=== PATIENT | male | born 1965 | race Caucasian/White ===

== ENCOUNTER 2016-12-31 16:00 | Inpatient (IN) | payer OTHER ==
--- NOTE | ~2016-12-31 | PN ---
Unit #: [id number] #: [id number] Patient: FABIÁN AUGUST [id number] [facility] [address] [place] [address] [id number] I MR#: [id number] NAME: FABIÁN AUGUST. ROOM: P210 Age: 51 Sex: M Admission Date: 12/31/2016 : 1965 Attending Physician: Aravind White M.D. Admitting Physician: Aravind White M.D. Primary Care Physician: Tony Solano PROGRESS NOTES DATE OF SERVICE: 01/02/2017 SUBJECTIVE Mr. August is a 51-year-old white male, who was seen today and chart was reviewed, and case was discussed with the staff. He has been anxious, withdrawn, and reports some persistent depressive symptom. Meanwhile, he has been compliant with the treatment recommendations and has been taking the medications and tolerating them fairly well with no reported side effects. MENTAL STATUS EXAMINATION Middle-aged white male, who was casually dressed with fair personal hygiene, appears to be in no acute distress or discomfort. He was awake and alert with intact orientation. His mood was anxious with a congruent affect. He denies any suicidal or homicidal ideations. His insight and judgment remain slightly impaired. TREATMENT PLAN 1. We will continue him on his current medications and treatment protocol. We will monitor his response to the medications and make further adjustments as needed. 2. We will continue to follow up. Dictated by... Tony Viera/teodora TD: 01/02/2017 13:23 JOB #: [id number] MARY PROGRESS NOTES Page 1 of 1 X Aravind White MD X PROGRESS NOTE
--- NOTE | ~2016-12-31 | PN ---
Unit #: [id number] #: [id number] Patient: FABIÁN AUGUST [id number] [facility] [address] [place] [address] [id number] I MR#: [id number] NAME: FABIÁN AUGUST. ROOM: P210 Age: 51 Sex: M Admission Date: 12/31/2016 : 1965 Attending Physician: Aravind White M.D. Admitting Physician: Aravind White M.D. Primary Care Physician: Tony Solano PROGRESS NOTES DATE OF SERVICE 01/05/2017 DISCUSSION Mr. August is a 51-year-old white male who was seen today. Chart was reviewed and case was discussed with the staff. He reports doing fairly well on his detox and that he is still struggling with his depression and anxiety, and we would like to go back on his previous medications of Lexapro and Seroquel. Meanwhile, he has been going to therapy groups and has been participating. MENTAL STATUS EXAMINATION Middle-aged white male who is casually dressed with fair personal hygiene, appears to be in no acute distress or discomfort. The patient was awake and alert on interaction with intact orientation. His mood is anxious and depressed with congruent affect. He denies any suicidal or homicidal ideations. His insight and judgment remain slightly impaired. TREATMENT PLAN 1. We will continue him on his current treatment protocol. We will monitor his response. We will start him back on Seroquel and Lexapro. 2. We will continue to follow up. Dictated by... Tony Viera/marlene TD: 01/05/2017 13:56 JOB #: [id number] [facility] PROGRESS NOTES Page 1 of 1 X Aravind White MD X PROGRESS NOTE
--- NOTE | ~2016-12-31 | PA ---
Unit #: [id number] #: [id number] Patient: FABIÁN AUGUST [id number] [facility] [place] [address] [id number] I MR#: [id number] NAME: FABIÁN AUGUST. ROOM: P210 Age: 51 Sex: M Admission Date: 12/31/2016 : 1965 Date of Assessment: Attending Physician: Aravind White M.D. Admitting Physician: Aravind White M.D. Primary Care Physician: Alan George M.D. PSYCHIATRIC ASSESSMENT IDENTIFYING DATA Mr. August is a 51-year-old single white male, who is a resident of [place], [place], and was self-referred to the hospital on voluntary basis. CHIEF COMPLAINT "I'm an alcoholic and had use heroin". HISTORY OF PRESENT ILLNESS Mr. August is a 41-year-old white male with history of substance abuse and dependence as he presented here stating that he called [facility] and they referred him to [facility] because of insurance and reports that he drank today four cans of Hebert's Hard lemonade and has been using alcohol and heroin on a daily basis and has usually been drinking a pint of vodka a day and using 3-10th of a gram of heroin and reports that he drinks whiskey not to get sick and has history of seizures coming off alcohol and does report increasing depression, anxiety, irritability, feelings of hopelessness and helplessness, but denies any suicidal ideations, intent, or plan. SUBSTANCE ABUSE HISTORY The patient has extensive history of substance abuse and dependence including alcohol, cannabis, cocaine, acid, opioids, inhalants, amphetamines, and benzodiazepines, and currently alcohol and opioids appear to be his drug of choice. PAST PSYCHIATRIC HISTORY The patient has had history of inpatient chemical dependency treatment at [facility] in the past. Review of the medical records indicate that currently he is not active in any treatment program, is not seeing a psychiatrist, is not taking any psychotropic medications. PAST MEDICAL HISTORY Polyps in colon, hepatitis B, cirrhosis of the liver, degenerative disk disease, pancreatitis and sciatica. ALLERGIES Codeine. PERSONAL AND SOCIAL HISTORY A 51-year-old white male, who reports that he is single, unemployed, and essentially homeless and has poor social support system. Unit #: [id number] #: [id number] Patient: FABIÁN AUGUST MENTAL STATUS EXAMINATION Middle-aged white male, who was casually dressed with fair personal hygiene, appears to be in no acute distress or discomfort. He was awake and alert on interaction with intact orientation to time, place, and person. His mood was anxious and depressed with a congruent affect. Her speech was slow and goal directed. He denies any suicidal or homicidal ideations and also denies any auditory or visual hallucinations. His insight and judgment remain significantly impaired. DIAGNOSTIC IMPRESSION Psychiatric: Opioid dependence, moderate and acute withdrawals. Methamphetamine dependence, moderate. Opioid-induced mood disorder. Medical: Polyps in colon, hepatitis B, cirrhosis of the liver, degenerative disk disease, pancreatitis, and sciatica. Stressors: Moderate psychosocial stressors. TREATMENT PLAN 1. The patient has presented with history of mood disorder and substance abuse and has been decompensating and will need inpatient hospitalization for safety and stabilization. We will start him back on his home medications. We will adjust the medications and monitor response. 2. Supportive therapy was provided to the patient. 3. Safe, structured, and nourishing environment will be provided. ESTIMATED LENGTH OF STAY 5 to 7 days. ABILITY TO HELP SELF Limited. WILLINGNESS TO HELP SELF The patient appears to be willing to help self. STRENGTHS 1. Communicative. 2. Cooperative. PROBLEMS 1. Chronic dysphoric symptoms. 2. Poor social support system. DISCHARGE CRITERIA This will be contingent upon the patient's ability to show resolution of his depression and anxiety and his ability to stay safe to himself, particularly after discharge from the hospital. Dictated by... Tony Viera/teodora TD: 01/01/2017 15:15 JOB #: [id number] Unit #: [id number] #: [id number] Patient: FABIÁN AUGUST PSYCHIATRIC ASSESSMENT Page 1 of 1 X Aravind White MD PSYCHIATRIC ASSESSMENT
--- NOTE | ~2016-12-31 | PN ---
Unit #: [id number] #: [id number] Patient: FABIÁN MACIEL [id number] [facility] [address] [place] [address] [id number] I MR#: [id number] NAME: FABIÁN MACIEL. ROOM: P210 Age: 51 Sex: M Admission Date: 12/31/2016 : 1965 Attending Physician: Aravind White M.D. Admitting Physician: Aravind White M.D. Primary Care Physician: Alan George M.D. [facility] PROGRESS NOTES DATE 01/01/2017 DISCUSSION Mr. Maciel is a 51-year-old white male who was seen today and chart reviewed and case was discussed with the staff. . Meanwhile, he has been cooperative with treatment protocol and medication and tolerating them fairly well with no reported side effects. MENTAL STATUS EXAMINATION Middle-aged white male who was casually dressed with a fair personal hygiene, appears to be in no acute distress or discomfort. He was awake and alert with intact orientation. His mood is anxious with a congruent affect. He denies any suicidal or homicidal ideation. His insight and judgment remains slightly impaired. TREATMENT PLAN We will continue him on his current medications and treatment protocol. We will monitor his response and make further adjustments as needed. Dictated by... Aravind White M.D. IAA/to TD: 01/02/2017 11:22 JOB #: [id number] [facility] PROGRESS NOTES Page 1 of 1 X Aravind White MD PROGRESS NOTE
--- NOTE | ~2016-12-31 | PN ---
Unit #: [id number] #: [id number] Patient: FABIÁN AUGUST [id number] [facility] [address] [place] [address] [id number] I MR#: [id number] NAME: FABIÁN AUGUST. ROOM: P210 Age: 51 Sex: M Admission Date: 12/31/2016 : 1965 Attending Physician: Aravind White M.D. Admitting Physician: Aravind White M.D. Primary Care Physician: Tony Solano PROGRESS NOTES DATE 01/03/2017 DISCUSSION Mr. August is a 51-year-old, white male who was seen today and chart was reviewed and case was discussed with the staff. He has been anxious, withdrawn and rather seclusive to himself. Meanwhile, he has been cooperative with the treatment recommendations. He has been taking the medication and tolerating them fairly well with no reported side effects. MENTAL STATUS EXAM Middle-aged white male who was casually dressed with fair personal hygiene, appears to be in no acute distress or discomfort. He was awake and alert with intact orientation. His mood was anxious with congruent affect. He denies any suicidal or homicidal ideation. His insight and judgement remains slightly impaired. TREATMENT PLAN 1. We will continue him on his current medications and treatment protocol. We will monitor his response to the medication and make further adjustments as needed. 2. We will continue to follow up. Dictated by... Tony Viera/edna TD: 01/04/2017 02:41 JOB #: [id number] Unit #: [id number] #: [id number] Patient: FABIÁN AUGUST PROGRESS NOTES Page 1 of 1 X Aravind hWite MD PROGRESS NOTE
--- NOTE | ~2016-12-31 | PN ---
Unit #: [id number] #: [id number] Patient: FABIÁN AUGUST [id number] [facility] [address] [place] [address] [id number] I MR#: [id number] NAME: FABIÁN AUGUST. ROOM: P210 Age: 51 Sex: M Admission Date: 12/31/2016 : 1965 Attending Physician: Aravind White M.D. Admitting Physician: Aravind White M.D. Primary Care Physician: Tony Solano PROGRESS NOTES DATE 01/04/2017 DISCUSSION Mr. August is a 51-year-old white male who was seen today and chart was reviewed and case was discussed with the staff. He remains anxious, withdrawn, depressed and seclusive to himself. However, he stated that he was interested in the Vivitrol injection program after completing the detox. He has been taking medications and tolerating them fairly well with no reported side effects. MENTAL STATUS EXAMINATION Young white male who was casually dressed with fair personal hygiene and appears to be in no acute distress or discomfort. He was awake and alert with intact orientation. His mood was anxious with congruent affect. He denies any suicidal or homicidal ideation. His insight and judgement remains slightly impaired. TREATMENT PLAN 1. Will continue on his current treatment protocol. Will monitor his response to the medications and make further adjustments as needed. 2. Will continue to follow up. Dictated by... Tony Viera/pilar TD: 01/04/2017 21:33 JOB #: [id number] Unit #: [id number] #: [id number] Patient: FABIÁN AUGUST MARY PROGRESS NOTES Page 1 of 1 X Aravind White MD X PROGRESS NOTE
--- NOTE | ~2016-12-31 | DS ---
Unit #: [id number] #: [id number] Patient: FABIÁN AUGUST [id number] [facility] [address] [place] [address] [id number] I MR#: [id number] NAME: FABIÁN AUGUST. ROOM: P210 Age: 51 Sex: M Admission Date: 12/31/2016 : 1965 Discharge Date: 01/06/2017 Attending Physician: Aravind White M.D. Primary Care Physician: Alan George M.D. DISCHARGE SUMMARY IDENTIFYING DATA Mr. August is a 51-year-old single white male, resident of [place], [place] was self-referred to the hospital on voluntary basis and with a chief complaint of "I'm an alcoholic and I have used heroin." HISTORY OF PRESENT ILLNESS Please see initial psychiatric evaluation for details. PAST PSYCHIATRIC HISTORY Please see initial psychiatric evaluation for details. PAST MEDICAL HISTORY Please see initial psychiatric evaluation for details. HOSPITAL COURSE The patient was admitted to the Adult Chemical Dependency Unit at [facility] alejandra [facility] and was oriented to the hospital environment, p.r.n. medications were initiated and he was started on the detox protocol and was seen to be anxious, withdrawn, and rather seclusive to himself; however, he was taking the medications regularly and once he was able to come out of the detox, he stated that he has history of depression and has been on Lexapro and Seroquel in the past and that he would like to get back on that regimen and Seroquel and Lexapro were initiated and he was closely monitored. He was taking the medications regularly and was tolerating them fairly well and was able to show a decent therapeutic response with improvement in depression and anxiety, and as such it was decided that he will be discharged and will continue treatment on outpatient basis. DISCHARGE DIAGNOSES Lodi I Opiate dependence, moderate, in acute withdrawal. Methamphetamine dependence, moderate, in acute withdrawal. Alcohol dependence, moderate. Opiate-induced mood disorder. Lodi II Lodi III Polyps in colon. Hepatitis B. Cirrhosis of the liver. Degenerative disc disease. Pancreatitis. Sciatica. Lodi IV Moderate psychosocial stressors. Lodi V Unit #: [id number] #: [id number] Patient: FABIÁN AUGUST DISCHARGE MEDICATIONS 1. Lexapro 10 mg in the morning for depression 2. Seroquel 100 mg at bedtime for depression CONDITION AT DISCHARGE Stable. PROGNOSIS Fair. Dictated by... Tony Viera/araseli TD: 01/07/2017 11:03 JOB #: [id number] DISCHARGE SUMMARY Page 1 of 1 X Aravind White MD X DISCHARGE SUMMARY
--- NOTE | ~2016-12-31 | CO ---
Unit #: [id number] #: [id number] Patient: LUKE AUGUST [id number] [place] [address] [id number] I MR#: [id number] NAME: LUKE AUGUST. ROOM: P210 Age: 51 Sex: M Admission Date: 12/31/2016 : 1965 Attending Physician: Aravind White M.D. Primary Care Physician: Alan George M.D. Consultation Date: 01/01/2017 CONSULTATION REPORT HISTORY OF PRESENT ILLNESS There is some concern that Luke has a history of DVT and may need anticoagulation. Luke reports he had a DVT at least a year ago and was given Coumadin while he was in the hospital. He also reports that he had been taking atenolol. He is not sure if he had AFib or another heart arrhythmia that possibly could have caused the clot, but he has not been taking any of these medications for the past year at least. 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 He denies any heart palpitations, chest pain, shortness of air, dizziness, or lightheadedness. No other complaints. PHYSICAL EXAMINATION CARDIAC: Regular rate and rhythm. No murmur, gallop, or rub. RESPIRATORY: Clear to auscultation bilaterally. ASSESSMENT AND PLAN History of deep venous thrombosis. Luke is an extremely poor historian. He is unsure what the cause of the deep venous thrombosis was or where the deep venous thrombosis was located. He reports he had been taking Coumadin and atenolol, but it has been at least a year since he was on those medications. At this time, there is no indication for restarting any of those meds. Dictated by... Gail Valenzuela A.P.R.N. for Tony Martinez/teodora TD: 01/02/2017 01:31 JOB #: [id number] CONSULTATION REPORT Page 1 of 1 X GAIL BUI APRN CONSULTATION REPORT
--- NOTE | ~2016-12-31 | HP ---
Unit #: [id number] #: [id number] Patient: LUKE AUGUST [id number] [place] [address] [id number] I MR#: [id number] NAME: LUKE AUGUST. ROOM: P210 Age: 51 Sex: M Admission Date: 12/31/2016 : 1965 Attending Physician: Aravind White M.D. Admitting Physician: Aravind White M.D. Primary Care Physician: Alan George M.D. HISTORY AND PHYSICAL HISTORY OF PRESENT ILLNESS Luke is a 51-year-old male admitted on 12/31/[address] [place] [address] for detox from alcohol and heroin. PAST MEDICAL HISTORY 1. Cirrhosis. 2. Pancreatitis. 3. Diverticulosis. 4. Degenerative disc disease. 5. Possible cardiac arrhythmia. PAST SURGICAL HISTORY for benign tumors. ALLERGIES Codeine. SOCIAL HISTORY He smokes 1 pack of cigarettes daily. Drinks a pint of alcohol daily and uses IV heroin daily. He is currently and living with his sister. FAMILY HISTORY Noncontributory. REVIEW OF SYSTEMS CONSTITUTIONAL: No fever or chills. HEENT: Denies any sore throat, ear pain or runny nose. CARDIOVASCULAR: Denies chest pain, irregular heart rhythm or palpitations. CHEST: Denies shortness of breath or cough. No hemoptysis. GASTROINTESTINAL: Denies nausea, vomiting, diarrhea or chronic constipation. ENDOCRINE: Denies history of increased thirst or urination. No recent significant weight loss or gain. GENITOURINARY: Denies dysuria, frequency, or hematuria. SKIN: Denies any rashes. HEMATOLOGIC: Denies history of increased bleeding or bruising. MUSCULOSKELETAL: Denies any hot, swollen joints. No generalized muscle pain. NEUROLOGIC: Denies problems with vision or speech. No frequent, severe headaches. No numbness, tingling or weakness in any extremities. Denies loss of bladder or bowel control. CURRENT MEDICATIONS Unit #: [id number] #: [id number] Patient: LUKE AUGUST None. PHYSICAL EXAMINATION GENERAL: Alert, oriented, in no acute distress. VITAL SIGNS: Blood pressure 143/95, heart rate 91, respirations 20. HEIGHT: 5 feet 10. WEIGHT: 180 pounds. SKIN: Warm and dry without rash or lesion. HEENT: Normocephalic. TMs not viewed. Oral and nasal passages clear. Conjunctivae clear. PERRLA. EOMs intact. NECK: Supple without lymphadenopathy or thyromegaly. HEART: Regular rate and rhythm without murmur. LUNGS: Clear. ABDOMEN: Soft, nontender, without masses or hepatosplenomegaly. : Not done. EXTREMITIES: No evidence of cyanosis, clubbing or edema. Moves all without focal deficit. NEUROLOGICAL: Grossly within normal limits. Cranial Nerves: II: Visual rudd are intact. III, IV AND : Extraocular movements are intact. Pupils are equal, round and reactive to light. V: Facial sensation is grossly normal. VII: Facial movements and expression are normal. VIII: Auditory acuity grossly intact. IX, X: Uvula is midline. Phonation is normal. XI: Patient shrugs shoulders and turns head normally. XII: Tongue protrudes in the midline. Sensory and Motor Function: Sensory and motor sensation is grossly normal. Motor: moves all extremities well. Coordination: Gait is normal. Deep Tendon Reflexes: Intact. IMPRESSION 1. Psychiatric admission. 2. Cirrhosis. 3. Pancreatitis. 4. Diverticulosis. 5. Degenerative disc disease. 6. Possible cardiac arrhythmia. RECOMMENDATIONS PSYCHIATRIC: Per psychiatrist. MEDICAL: No contraindications to participate in facility's activities. MEDICAL PROGNOSIS Good. MEDICAL CONDITION Stable. Dictated by..Brice Olson/pilar TD: 01/01/2017 16:58 JOB #: [id number] Unit #: [id number] #: [id number] Patient: LUKE AUGUST HISTORY AND PHYSICAL Page 1 of 1 X WAYNE BUI APRN HISTORY AND PHYSICAL
[~2016-12-31 16:00] MED LIST: ATENOLOL PO; ATENOLOL50 MG PO; BENZONATATE PO; CLEOCIN150 M1 PO; DEPAKOTE PO; DICYCLOMINE HCL20 MG PO; ESKALITH PO; LEVAQUIN PO; LITHIUM CARBON600 MG PO; LITHIUM PO; MOBIC PO; NAPROSYN500 MG PO; NEURONTIN PO; PHENERGAN PO; PHENERGAN25 MG PO; PRILOSEC; PRILOSEC20 MG DOB; PRILOSEC20 MG PO; SEROQUEL PO; ZITHROMAX PO
[2017-01-02 13:07] LABS: URINE APPEARANCE CLEAR; URINE BILIRUBIN NEG (NEG); URINE BLOOD NEG (NEG); URINE COLOR YELLOW; URINE GLUCOSE NEG (NEG); URINE KETONE NEG (NEG); URINE LEUKOCYTE ESTERASE NEG (NEG); URINE NITRATE NEG (NEG); URINE PROTEIN NEG (NEG); URINE SPECIFIC GRAVITY 1.006 (1.003-1.035); URINE UROBILINOGEN 0.2 MG/DL (NEG)
[2017-01-02 13:33] LABS: AMPHETAMINE NEG (NEG); BARBITURATES NEG (NEG); BENZODIAZEPINES NEG (NEG); COCAINE NEG (NEG); MARIJUANA NEG (NEG); OPIATES NEG (NEG); TRICYCLIC ANTIDEPRESSANTS NEG (NEG); U METHADONE NEG (NEG)
[2017-01-03 09:47] LABS: BASOPHIL% 0.3 % (0-2.5); EOSINOPHIL# 0.3 X10e3 (0-0.7); EOSINOPHIL% 3.4 % (0.0-7.0); HEMATOCRIT 50.4 % (38.0-50.0); HEMOGLOBIN 16.6 gm/dL (13.0-16.0); LYMPHOCYTE# 2.2 X10e3 (1.0-3.5); LYMPHOCYTE% 24.2 % (17.0-45.0); MEAN CELL VOLUME 86.5 FL (83-96); MEAN CORPUSCULAR HEMOGLOBIN 28.4 PG (28-34); MEAN CORPUSCULAR HGB CONC 32.9 g/dL (30-36); MEAN PLATELET VOLUME 8.6 FL (6.5-11.5); MONOCYTE# 0.4 X10e3 (0-1.0); MONOCYTE% 4.6 % (3.0-12.0); NEUTROPHIL% 67.5 % (40-75); PLATELET COUNT 253 X10e3 (140-420); RED BLOOD COUNT 5.82 X10e (3.90-5.60); RED CELL DISTRIBUTION WIDTH 14.1 % (11.0-15.5); WHITE BLOOD COUNT 8.9 X10e3 (4.0-10.5)
[2017-01-03 10:01] LABS: ALKALINE PHOSPHATASE 80 U/L (32-92); ALT (SGPT) 19 U/L (10-40); AST (SGOT) 21 U/L (10-42); BILIRUBIN,TOTAL 0.4 mg/dL (0.2-2.0); BLOOD UREA NITROGEN 16 mg/dL (9-23); CALCIUM SERUM 9.3 mg/dL (8.4-10.2); CARBON DIOXIDE 26 mmol/L (22-31); CHLORIDE 105 mmol/L (100-111); GLUCOSE FASTING 103 mg/dL (70-110); POTASSIUM 4.6 mmol/L (3.5-5.1); PROTEIN TOTAL SERUM 7.7 g/dL (6.0-8.3); SALICYLATE <4.0 mg/dL; SODIUM 138 mmol/L (135-145)
[2017-01-03 10:07] LABS: DIFF IND NO
== END 2017-01-06 10:50 | disposition home or self-care (01) | DRG 897 ==
LOC: P2S 16:50
PROVIDERS: Psychiatry & Neurology Psychiatry
PROC: HZ2ZZZZ Detoxification Services for Substance Abuse Treatment (ICD-10-PCS; principal; 2016-12-31)
DX: F11.23 Opioid dependence with withdrawal (principal); F15.20 Other stimulant dependence, uncomplicated; K74.60 Unspecified cirrhosis of liver; F11.24 Opioid dependence with opioid-induced mood disorder; Z88.5 Allergy status to narcotic agent; Z86.19 Personal history of other infectious and parasitic diseases; Z86.010 Personal history of colon polyps; M54.30 Sciatica, unspecified side; Z59.0 Homelessness; F17.210 Nicotine dependence, cigarettes, uncomplicated; Z86.718 Personal history of other venous thrombosis and embolism
CPT/HCPCS: 80053; 80307; 81003; 85025; G0480; J2550

== ENCOUNTER 2017-01-07 08:48 | Emergency (ER) | payer OTHER | END 2017-01-07 11:15 | disposition left against medical advice (07) | LOC: CED 08:48 | DX: Z53.21 Procedure and treatment not carried out due to patient leaving prior to being seen by health care provider (principal) ==